=== PATIENT | male | born 1990 ===

== ENCOUNTER 2023-07-09 22:43 | Inpatient (IN) | payer OTHER, SELFPAY ==
--- NOTE | ~2023-07-09 | US_ITS ---
EXAMINATION: US SCROTUM CLINICAL INFORMATION: Swelling, venous engorgement. COMPARISON: None available. TECHNIQUE: A sonogram of the scrotum was performed assessing hathaway-scale appearance and color Doppler flow. Spectral Doppler analysis of the arterial and venous flow were performed in the testes bilaterally. FINDINGS: RIGHT: Right testicle measures 3.7 x 1.7 x 2.7 cm, volume 8.6 mL. No focal testicular parenchymal lesions are visualized. Spectral Doppler analysis of the arterial and venous flow is normal in the right testis. Right epididymal head is normal in size. No right hydrocele or varicocele is seen. Right epididymal Doppler flow is normal. LEFT: Left testicle measures 3.7 x 1.4 x 2.4 cm, volume 6.6 mL. No focal testicular parenchymal lesions are visualized. Spectral Doppler analysis of the arterial and venous flow is normal in the left testis. Left epididymal head is normal in size. No left hydrocele or varicocele is seen. Left epididymal Doppler flow is normal. US/US scrotum IMPRESSION: Normal scrotal ultrasound.
--- NOTE | 2023-07-09 22:46 | PC.ADMIT ---
Brandon is a very pleasant 32 yr old male who presents with SI and med non compliance d/t communication breakdown with pysychiatrist/prescriber. He states he has been off medications for 4 months. He only admits to taking Ko Olina and Wellbutrin and hydroxyzine and seroquel as needed. He states his prescriber put in the wrong orders for his meds and that the pharmacy wouldnt fill them and that the prescriber didnt change them. He states he has been suffering from symptoms of extreme fatigue, brain fog, and has barely been out of bed in the past 2 months. He also has hot flashes all the time breaking out in sweats, delusions, and worsening suicidal thoughts. He states he doesnt have a concrete plan but has been thinking about it alot. He communicates very well and is known to . He states Dr. De La Cruz helped him out last time and feels good about seeing him. He states he has been feeling hopeless lately. He vapes, has a current order for nicotine replacement. He states he hasnt been drinking as much but according to his chart and etoh level it still remains a problem. He doesn't admit how much, just states not as much. 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 He states he has stable housing and lives with his father who is a caring person. He states he has a new girlfriend who is his current support system and appears to really enjoy her. He has no pcp and states he has no current therapist. He expresses hope in his stay here and is looking for help.
[2023-07-09 23:00] VITALS: BP 119/81; PULSE 112; RESP 16; TEMP 36.6; O2SAT 96
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
[2023-07-10] MEDS: methADONE HCl 20 MG/2 ML ORAL.CONC 80 MG PO (08:29)
[2023-07-10] MEDS: buPROPion HCl XL 150 MG TAB.ER.24H PO ×2 (08:30→13:22)
[2023-07-10 08:38] VITALS: BP 124/75; PULSE 113; RESP 18; TEMP 36.8; O2SAT 95
[2023-07-10 09:20] LABS: Estimated Average Glucose 120 mg/dL; Hemoglobin A1c % 5.8 % (<6.0)
[2023-07-10 09:21] LABS: Alanine Aminotransferase 22 U/L (0-40); Albumin Level 4.3 g/dL (3.5-5.0); Alkaline Phosphatase 83 U/L (39-117); Anion Gap 14 (12-20); Aspartate Amino Transferase 16 U/L (5-37); Bilirubin Total 0.5 mg/dL (0.0-1.0); Blood Urea Nitrogen 16 mg/dL (9-16); Calcium 9.6 mg/dL (8.4-10.2); Carbon Dioxide 28 mmol/L (22-29); Chloride 103 mmol/L (96-108); Cholesterol 253 mg/dL (<200); Estimated Glomerular Filt Rate > 60; Glucose Fasting 103 mg/dL (60-99); HDL Cholesterol 46 mg/dL (>40); LDL Cholesterol Calculated 186 mg/dL (<100); Potassium 4.4 mmol/L (3.3-5.1); Sodium 141 mmol/L (135-145); Total Protein 8.5 g/dL (6.5-8.0); Triglycerides 109 mg/dL (<150)
[2023-07-10 09:37] LABS: Thyroid Stimulating Hormone 0.44 uIU/mL (0.32-4.0)
[2023-07-10 09:52] LABS: Folate 13.7 ng/mL (> or = 4.0); Vitamin B12 364 pg/mL (200-900)
--- NOTE | 2023-07-10 12:43 | P.CONHOSP_ITS ---
History of Present Illness Data of Consult Service Date: 07/10/23 Primary Care Provider: Unknown Physician HPI Reason for consult: Admission H&P Pt is a 32-year-old male with a PMH significant for depression and polysubstance use disorder who is admitted to M5 psychiatry unit for increasing depression, anxiety, and paranoia with HI. Patient denies any SI. Medical consult for admission H&P. ?Patient states he has a remote history of IV drug use of crack and fentanyl, states last use regularly for years ago. Currently reports he feels ?fine? with no acute medical complaints. Denies any chronic medical complaints. No chest pain/pressure, palpitations. Denies shortness of breath. No fever, chills, nausea, vomiting, abdominal pain. Denies headache, acute vision changes. Labs reviewed, grossly unremarkable except for mildly elevated cholesterol. Review of Systems 2 Review of Systems: Patient has no acute or chronic medical complaints PMFSH Social History Household Members: Unknown / Unable to assess Do you presently have visiting nurse or other home services: No Patient Tobacco Use Status: Never used Tobacco Smoked in Last 30 Days: No e-Cigarette/Vaping Use: Never Used Patient Interested in Nicotine Replacement: No Patient Given Instructions on How to Stop Smoking: No Second Hand Smoke Exposure: No Use of substances other than those prescribed or required for medical reasons: Yes Substance Use Type: Crack/Cocaine Last Used Substance: Unknown Currently Displaying Signs/Symptoms of Drug Intoxication Withdrawal: No Any prior treatment program specific to substance use: Yes (CAME FROM [facility]) Are you made to feel afraid or neglected: No Advance Directives: No Advance Directives Information Provided: No Do you have thoughts of harming others: None Do you have a plan to hurt others: No Plan Recently lost weight without trying: No Eating poorly because of decreased appetite: No Nutrition Risks: No Nutritional Risk Poor oral hygiene: No Meds Allergies Allergy/AdvReac Type Severity Reaction Status Date / Time No Known Allergies Allergy Verified 07/09/23 23:11 Active Medications: Current Medications Acetaminophen (Acetaminophen 325 Mg Tablet) 650 mg PO Q6H PRN PRN Reason: Headache/Pain Mild Scale (1-3) Al Hydroxide/Mg Hydroxide (Magnesium Hydrox/Alum Hydrox 30 Ml Oral.Susp) 30 ml PO Q6H PRN PRN Reason: Heartburn/Nausea Bupropion HCl (Bupropion Hcl Xl 150 Mg Tab.Er.24h) 150 mg PO DAILY [facility] Last Admin: 07/10/23 08:30 Dose: 150 mg Clonidine HCl (Clonidine Hcl 0.1 Mg Tablet) 0.1 mg PO DAILY PRN; Protocol PRN Reason: anxiety Hydroxyzine HCl (Hydroxyzine Hcl 25 Mg Tablet) 25 mg PO Q6H PRN PRN Reason: Anxiety Magnesium Hydroxide (Milk Of Magnesia 30 Ml Oral.Susp) 30 ml PO DAILY PRN PRN Reason: Constipation Methadone HCl (Methadone Hcl 20 Mg/2 Ml Oral.Conc) 80 mg PO DAILY [facility] Last Admin: 07/10/23 08:29 Dose: 80 mg Quetiapine Fumarate (Quetiapine Fumarate 300 Mg Tablet) 300 mg PO BEDTIME [facility] Last Admin: 07/10/23 02:43 Dose: Not Given Trazodone HCl (Trazodone Hcl 50 Mg Tablet) 50 mg PO BEDTIME MRX1 PRN PRN Reason: Insomnia Home Medications Medication Instructions Recorded Confirmed Last Taken Type bupropion HCl 100 mg tablet 150 mg PO BID 07/10/23 07/10/23 07/09/23 History clonidine HCl 0.1 mg tablet 0.1 mg PO BID 07/10/23 07/10/23 07/09/23 History methadone 5 mg/0.5 mL oral syringe 80 mg PO DAILY 07/10/23 07/10/23 07/09/23 09:10 History (FOR ORAL USE ONLY) quetiapine 300 mg tablet (Seroquel) 300 mg PO DAILY 07/10/23 07/10/23 07/08/23 History Physical Exam 2 Vital Signs and Narrative: Vital Signs: Last Vital Signs Temp 98.3 F 07/10/23 08:38 Pulse 113 H 07/10/23 08:38 Resp 18 07/10/23 08:38 BP 124/75 07/10/23 08:38 Pulse Ox 95 07/10/23 08:38 O2 Del Method Room Air 07/10/23 08:38 General: AOx3, no acute distress Resp: CTA bilaterally CVS: S1, S2, RRR GI: +BS, NT, no distention Skin: Warm, dry Neuro: Cranial nerves II-XII grossly intact bilaterally. Motor grossly intact bilaterally Extremities: No edema Psych: Appropriate affect Results Labs 07/10/23 08:44 Labs: Laboratory Results - last 24 hr 07/10/23 08:44 Anion Gap 14 Estim Creat Clear Calc TNP Estimated GFR > 60 Fasting Glucose 103 H Estimat Average Glucose 120 Hemoglobin A1c % 5.8 Calcium 9.6 Total Bilirubin 0.5 AST 16 ALT 22 Alkaline Phosphatase 83 Total Protein 8.5 H Albumin 4.3 Triglycerides 109 Cholesterol 253 H LDL Cholesterol, Calc 186 H HDL Cholesterol 46 Vitamin B12 364 Folate 13.7 TSH 0.44 Assessment and Plan (1) Medical clearance for psychiatric admission: Status: Acute Plan Pt is a 32-year-old male with a PMH significant for depression and polysubstance use disorder who is admitted to M5 psychiatry unit for increasing depression, anxiety, and paranoia with HI. Patient denies any SI. Medical consult for admission H&P. Mood disorder Plan as per Psychiatry Patient otherwise has no chronic medical conditions or acute medical complaints. Thank you for allowing us to participate in the care of this patient. Signing off at this time. Please re-consult if any acute complaints or issues arise.
[2023-07-10 18:20] VITALS: BP 148/89; RESP 16; TEMP 37; O2SAT 96
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
[2023-07-10 20:14] VITALS: BP 121/88; PULSE 95
[2023-07-10] MEDS: cloNIDine HCL 0.1 MG TABLET PO (20:18)
[2023-07-10] MEDS: Acetaminophen 325 MG TABLET 650 MG PO (20:19)
[2023-07-10] MEDS: QUEtiapine Fumarate 300 MG TABLET PO (20:19)
[2023-07-11] MEDS: methADONE HCl 20 MG/2 ML ORAL.CONC 80 MG PO (08:32)
[2023-07-11] MEDS: buPROPion HCL 75 MG TABLET 150 MG PO ×3 (08:32→15:48)
[2023-07-11] MEDS: cloNIDine HCL 0.1 MG TABLET PO ×3 (08:32→20:53)
[2023-07-11 08:35] VITALS: BP 142/84; PULSE 92; RESP 16; TEMP 37.1; O2SAT 95
--- NOTE | 2023-07-11 10:51 | P.PNPSI_ITS ---
Subjective Subjective Date of Service: 07/11/23 Reason For Visit: Unspecified Anxiety Disorder Subjective Notes: Conditional Voluntary Healthcare Proxy: No Guardianship: No Medical Problems Affecting Mental Status: No Interim History: Signed SHRUTI for [employer]. Economic Analysis Director present. Discussed his program [facility], this he states was a [facility] program that [facility] transferred from after an admit to [facility]. States he went from [facility] to [facility] to [facility]. Review of meds with pt. Asks to increase Methadone. Addiction consult is pending. Medication Compliance: Yes Side effects from medications: No Attending Groups: Intermittent Review of Systems Acute medical concerns: No Medical Review of Systems: unchanged Review of Systems Review of Systems Yes all other systems are reviewed and are negative Mental Status Exam Mental Status Exam Patient Appearance: Appropriate Patient Orientation: Person, Place, Time and Situation Level of Consciousness: Alert Patient Behavior: Talkative and Good Eye Contact Mood Description: Depressed and Apprehensive Affect Description: Apprehensive Patient Cognition Impaired: No Ability to Follow Directions: Good Speech Pattern: Spontaneous Speech Memory Description: Episodic Impaired Hallucinations: None Delusions: Paranoid Ideation (when meds were cut) Thought Process: Distracted and Rumination Thought Content: positive for Perseveration, positive for Suicidal Ideation and positive for Homicidal Ideation (denies) Depressive Symptoms: Increased Anxiety Judgement: Fair Diagnostics Vital Signs (24Hr): Vital Signs - 24 hr 07/10/23 18:20 07/10/23 20:14 07/11/23 08:35 Temperature 98.6 F 98.7 F Pulse Rate 95 92 Respiratory Rate 16 16 Blood Pressure 148/89 H 121/88 142/84 H Pulse Oximetry 96 95 Oxygen Delivery Method Room Air Room Air Labs 07/10/23 08:44 Labs: Laboratory Results - last 48 hr 07/10/23 08:44 Sodium 141 Potassium 4.4 Chloride 103 Carbon Dioxide 28 Anion Gap 14 BUN 16 Creatinine 0.99 Estim Creat Clear Calc TNP Estimated GFR > 60 Fasting Glucose 103 H Estimat Average Glucose 120 Hemoglobin A1c % 5.8 Calcium 9.6 Total Bilirubin 0.5 AST 16 ALT 22 Alkaline Phosphatase 83 Total Protein 8.5 H Albumin 4.3 Triglycerides 109 Cholesterol 253 H LDL Cholesterol, Calc 186 H HDL Cholesterol 46 Vitamin B12 364 Folate 13.7 TSH 0.44 Medications Medications Current Medications Acetaminophen (Acetaminophen 325 Mg Tablet) 650 mg PO Q6H PRN PRN Reason: Headache/Pain Mild Scale (1-3) Last Admin: 07/10/23 20:19 Dose: 650 mg Al Hydroxide/Mg Hydroxide (Magnesium Hydrox/Alum Hydrox 30 Ml Oral.Susp) 30 ml PO Q6H PRN PRN Reason: Heartburn/Nausea Bupropion HCl (Bupropion Hcl 75 Mg Tablet) 150 mg PO TID@0800,1300,1700 [facility] Last Admin: 07/11/23 08:32 Dose: 150 mg Clonidine HCl (Clonidine Hcl 0.1 Mg Tablet) 0.1 mg PO DAILY PRN; Protocol PRN Reason: anxiety Clonidine HCl (Clonidine Hcl 0.1 Mg Tablet) 0.1 mg PO TID [facility]; Protocol Last Admin: 07/11/23 08:32 Dose: 0.1 mg Hydroxyzine HCl (Hydroxyzine Hcl 25 Mg Tablet) 25 mg PO Q6H PRN PRN Reason: Anxiety Magnesium Hydroxide (Milk Of Magnesia 30 Ml Oral.Susp) 30 ml PO DAILY PRN PRN Reason: Constipation Methadone HCl (Methadone Hcl 20 Mg/2 Ml Oral.Conc) 80 mg PO DAILY [facility] Last Admin: 07/11/23 08:32 Dose: 80 mg Quetiapine Fumarate (Quetiapine Fumarate 300 Mg Tablet) 300 mg PO BEDTIME [facility] Last Admin: 07/10/23 20:19 Dose: 300 mg Trazodone HCl (Trazodone Hcl 50 Mg Tablet) 50 mg PO BEDTIME MRX1 PRN PRN Reason: Insomnia Allergies Allergies Allergy/AdvReac Type Severity Reaction Status Date / Time No Known Allergies Allergy Verified 07/09/23 23:11 Assessment & Plan Assessment & Plan (1) Severe recurrent major depression w/psychotic features, mood-congruent: Status: Acute Code(s): F33.3 - Major depressive disorder, recurrent, severe with psychotic symptoms (2) Opioid use disorder, severe, on maintenance therapy, dependence: Status: Acute Code(s): F11.20 - Opioid dependence, uncomplicated Plan 32 yo male, hx of depression with psychotic features, opiate use, currently on methadone with significant sobriety. Reports discharge from [facility] recently due to conflicts with peers, resulting HI, SI and recent GDR of medications by a new provider. Plan: Collateral contacts Increase Clonidine to 0.1 mg tid as previously dosed Increase Bupropion to 150 mg tid as previously dosed Addiction consult 07/11/23 Continue tx. Patient educated on: medication risk/benefits, therapeutic strategies and other Informed Consent: understands Reason for continued inpatient stay Substantial Risk for: rapid decompensation Time Spent With Patient Time: Total time managing care of this patient today ____ minutes.
[2023-07-11 15:00] VITALS: BP 126/90; PULSE 89
[2023-07-11] MEDS: QUEtiapine Fumarate 300 MG TABLET PO (20:52)
[2023-07-12] MEDS: buPROPion HCL 100 MG TABLET 300 MG PO (08:08)
[2023-07-12] MEDS: cloNIDine HCL 0.1 MG TABLET PO ×3 (08:08→20:03)
[2023-07-12] MEDS: methADONE HCl 20 MG/2 ML ORAL.CONC 80 MG PO (08:08)
[2023-07-12] MEDS: risperiDONE 2 MG TABLET PO (08:08)
[2023-07-12 08:15] VITALS: BP 134/88; PULSE 87; RESP 18; TEMP 37.1; O2SAT 95
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
[2023-07-12] MEDS: buPROPion HCL 75 MG TABLET 150 MG PO (12:16)
[2023-07-12] MEDS: methADONE HCl 20 MG/2 ML ORAL.CONC 5 MG PO (12:59)
[2023-07-12 14:13] VITALS: BP 140/82; PULSE 109
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
[2023-07-12] MEDS: QUEtiapine Fumarate 300 MG TABLET PO (20:03)
[2023-07-12 20:45] VITALS: RESP 16
[2023-07-13 08:00] VITALS: BP 113/66; PULSE 87; TEMP 36.2; O2SAT 97
[2023-07-13] MEDS: methADONE HCl 20 MG/2 ML ORAL.CONC 85 MG PO (08:19)
[2023-07-13] MEDS: buPROPion HCL 100 MG TABLET 300 MG PO (08:21)
[2023-07-13] MEDS: risperiDONE 2 MG TABLET PO (08:21)
[2023-07-13] MEDS: cloNIDine HCL 0.1 MG TABLET PO ×3 (08:22→22:09)
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
[2023-07-13] MEDS: buPROPion HCL 75 MG TABLET 150 MG PO (13:00)
[2023-07-13 18:00] VITALS: BP 132/87; PULSE 104; RESP 16; TEMP 36.7; O2SAT 96
[2023-07-13 22:00] VITALS: BP 124/75; PULSE 85
[2023-07-13] MEDS: QUEtiapine Fumarate 300 MG TABLET PO (22:09)
[2023-07-14 08:00] VITALS: BP 129/66; PULSE 80; RESP 18; TEMP 36.6; O2SAT 96
[2023-07-14] MEDS: methADONE HCl 20 MG/2 ML ORAL.CONC 85 MG PO (08:19)
[2023-07-14] MEDS: buPROPion HCL 100 MG TABLET 300 MG PO (08:20)
[2023-07-14] MEDS: cloNIDine HCL 0.1 MG TABLET PO ×2 (08:20→19:43)
[2023-07-14] MEDS: risperiDONE 2 MG TABLET PO (08:21)
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
[2023-07-14] MEDS: buPROPion HCL 75 MG TABLET 150 MG PO (13:07)
[2023-07-14 19:30] VITALS: BP 109/60; PULSE 113; RESP 16; TEMP 36.9; O2SAT 96
[2023-07-14] MEDS: QUEtiapine Fumarate 300 MG TABLET PO (19:43)
[2023-07-15 08:00] VITALS: BP 136/72; PULSE 80; TEMP 36.4; O2SAT 94
[2023-07-15] MEDS: methADONE HCl 20 MG/2 ML ORAL.CONC 85 MG PO (08:38)
[2023-07-15] MEDS: risperiDONE 2 MG TABLET PO (08:39)
[2023-07-15] MEDS: cloNIDine HCL 0.1 MG TABLET PO ×3 (08:39→20:09)
[2023-07-15] MEDS: buPROPion HCL 100 MG TABLET 300 MG PO (08:40)
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
[2023-07-15] MEDS: buPROPion HCL 75 MG TABLET 150 MG PO (13:06)
[2023-07-15 15:45] VITALS: BP 126/78; O2SAT 99
[2023-07-15 18:00] VITALS: BP 124/79; PULSE 94; RESP 18; TEMP 36.7; O2SAT 95
[2023-07-15] MEDS: QUEtiapine Fumarate 300 MG TABLET PO (20:13)
[2023-07-16 08:15] VITALS: BP 119/75; PULSE 87; RESP 18; TEMP 36.8; O2SAT 97
[2023-07-16] MEDS: methADONE HCl 20 MG/2 ML ORAL.CONC 85 MG PO (08:33)
[2023-07-16] MEDS: risperiDONE 2 MG TABLET PO (08:35)
[2023-07-16] MEDS: cloNIDine HCL 0.1 MG TABLET PO ×3 (08:35→20:28)
[2023-07-16] MEDS: buPROPion HCL 100 MG TABLET 300 MG PO (08:35)
[2023-07-16] MEDS: buPROPion HCL 75 MG TABLET 150 MG PO (12:58)
[2023-07-16 15:28] VITALS: BP 133/83; PULSE 101
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
[2023-07-16 20:25] VITALS: BP 138/78; PULSE 89; TEMP 37.1
[2023-07-16] MEDS: QUEtiapine Fumarate 300 MG TABLET PO (20:28)
[2023-07-17] MEDS: risperiDONE 2 MG TABLET PO (08:47)
[2023-07-17] MEDS: cloNIDine HCL 0.1 MG TABLET PO ×3 (08:47→20:02)
[2023-07-17] MEDS: methADONE HCl 20 MG/2 ML ORAL.CONC 85 MG PO (08:47)
[2023-07-17] MEDS: buPROPion HCL 100 MG TABLET 300 MG PO (08:47)
[2023-07-17 08:50] VITALS: BP 113/58; PULSE 87; RESP 18; TEMP 36.8; O2SAT 93
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
[2023-07-17] MEDS: buPROPion HCL 75 MG TABLET 150 MG PO (13:12)
[2023-07-17 14:23] VITALS: BP 139/81; PULSE 122
--- NOTE | 2023-07-17 17:35 | PM.EVENT ---
Event Note Date of Service: 07/17/23 Event Note: Pt seen and examined for testicular swelling. RENETTA Kitchen, served as hosting engineer for this sensitive exam. Pt reports for the last few days noticed a bumb on the underside of his scrotum. No associated pain or drainage. No wound. No prior history of similar. On exam, there is slight engorgement of one of the superfical veins on the underside of the left scrotum. No testicular pain or swelling. Likely benign etiology. Will check scrotal u/s. Time Spent With Patient Time: Total time managing care of this patient today ____ minutes.
[2023-07-17 20:00] VITALS: BP 128/86; PULSE 107; TEMP 36.3
[2023-07-17] MEDS: QUEtiapine Fumarate 300 MG TABLET PO (20:02)
[2023-07-17] MEDS: traZODone HCL 25 MG HALFTAB PO (20:06)
[2023-07-18] MEDS: methADONE HCl 20 MG/2 ML ORAL.CONC 85 MG PO (08:50)
[2023-07-18] MEDS: cloNIDine HCL 0.1 MG TABLET PO ×3 (08:50→22:35)
[2023-07-18] MEDS: buPROPion HCL 100 MG TABLET 300 MG PO (08:50)
[2023-07-18] MEDS: risperiDONE 3 MG TABLET PO (08:50)
[2023-07-18 08:53] VITALS: BP 122/83; PULSE 100; RESP 18; TEMP 36.6; O2SAT 96
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
[2023-07-18] MEDS: buPROPion HCL 75 MG TABLET 150 MG PO (13:05)
[2023-07-18 15:05] VITALS: BP 157/81; PULSE 106
[2023-07-18 18:00] VITALS: BP 123/78; PULSE 96; RESP 16; TEMP 37.1; O2SAT 98
[2023-07-18 22:26] VITALS: BP 108/57; PULSE 89
[2023-07-18] MEDS: QUEtiapine Fumarate 300 MG TABLET PO (22:34)
[2023-07-18] MEDS: traZODone HCL 25 MG HALFTAB PO (22:34)
[2023-07-19 08:30] VITALS: BP 125/71; PULSE 82; RESP 18; TEMP 36.4; O2SAT 94
[2023-07-19] MEDS: methADONE HCl 20 MG/2 ML ORAL.CONC 85 MG PO (08:42)
[2023-07-19] MEDS: buPROPion HCL 100 MG TABLET 300 MG PO (08:42)
[2023-07-19] MEDS: risperiDONE 3 MG TABLET PO (08:43)
[2023-07-19] MEDS: cloNIDine HCL 0.1 MG TABLET PO (08:43)
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
== END 2023-07-19 11:07 | disposition home or self-care (01) | DRG 751 ==
PROVIDERS: Social Worker; Admitting Provider Psychiatry & Neurology Psychiatry; Visit Provider Clinical Nurse Specialist Psychiatric/Mental Health, Adult
DX: F33.3 Major depressive disorder, recurrent, severe with psychotic symptoms (principal); R45.850 Homicidal ideations; R45.851 Suicidal ideations; N50.89 Other specified disorders of the male genital organs; F11.20 Opioid dependence, uncomplicated; Z79.899 Other long term (current) drug therapy
CPT/HCPCS: 36415; 76870; 80053; 80061; 82607; 82746; 83036; 84443

== ENCOUNTER → 2023-07-09 22:43 | Outpatient (BNV) | payer OTHER, SELFPAY | PROVIDERS: Admitting Provider Psychiatry & Neurology Psychiatry; Visit Provider Clinical Nurse Specialist Psychiatric/Mental Health, Adult | DX: F33.3 Major depressive disorder, recurrent, severe with psychotic symptoms (principal); F11.20 Opioid dependence, uncomplicated | CPT/HCPCS: 99231; 99232; 99499 ==

== ENCOUNTER → 2023-07-09 22:43 | Outpatient (BNV) | payer OTHER, SELFPAY | PROVIDERS: Admitting Provider Psychiatry & Neurology Psychiatry; Visit Provider Student in an Organized Health Care Education/Training Program | DX: Z02.2 Encounter for examination for admission to residential institution (principal) | CPT/HCPCS: 99429; 99499 ==